=== PATIENT | male | born 1950 | race Caucasian/White ===

== ENCOUNTER 2017-04-12 08:58 | Emergency (ER) | payer MEDICARE, OTHER ==
[~2017-04-12] VITALS: Ht 177.8 cm; Wt 68.0 kg
[2017-04-12 10:55] VITALS: BP 128/80
--- NOTE | 2017-04-12 11:00 | NUR ---
Patient discharged to home in stable condition. Written and verbal after care instructions given. Patient verbalizes understanding of instruction.
== END 2017-04-12 11:02 | disposition home or self-care (01) ==
LOC: ER 09:01
DX: R05 Cough (principal); Z88.0 Allergy status to penicillin; Z88.1 Allergy status to other antibiotic agents
CPT/HCPCS: 71010-TC; A4606; Z7610

== ENCOUNTER 2018-01-22 19:24 | Emergency (ER) | payer MEDICARE, OTHER ==
[~2018-01-22] VITALS: Ht 177.8 cm; Wt 68.0 kg
[2018-01-22 19:36] VITALS: BP 114/85
== END 2018-01-22 21:13 | disposition home or self-care (01) ==
LOC: ER 19:27
DX: H61.21 Impacted cerumen, right ear (principal); T16.1XXA Foreign body in right ear, initial encounter; Z88.0 Allergy status to penicillin; Z88.1 Allergy status to other antibiotic agents; X58.XXXA Exposure to other specified factors, initial encounter; Y93.89 Activity, other specified; Y92.89 Other specified places as the place of occurrence of the external cause; Y99.8 Other external cause status
CPT/HCPCS: A4606; Z7610

== ENCOUNTER 2018-03-19 19:39 | Emergency (ER) | payer MEDICARE, OTHER ==
[~2018-03-19] VITALS: Ht 180.3 cm; Wt 67.1 kg
[2018-03-19 19:55] VITALS: BP 122/82
== END 2018-03-19 20:12 | disposition home or self-care (01) ==
LOC: ER 19:39
DX: S00.451A Superficial foreign body of right ear, initial encounter (principal); Z88.0 Allergy status to penicillin; Z88.1 Allergy status to other antibiotic agents; W22.8XXA Striking against or struck by other objects, initial encounter; Y93.89 Activity, other specified; Y92.89 Other specified places as the place of occurrence of the external cause; Y99.8 Other external cause status
CPT/HCPCS: A4606; J7030; Z7610